=== PATIENT | male | born 1975 | race African-American/Black ===

== ENCOUNTER 2025-01-09 19:36 | Emergency (ER) | payer MEDICAID ==
[~2025-01-09] VITALS: Ht 188 cm; Wt 81.0 kg
[2025-01-09 19:40] VITALS: O2SAT 100
[2025-01-09] MEDS: MAGNESIUM HYDROXIDE 400MG/5ML 30ML UDC PO ONE (21:26)
[2025-01-09] MEDS: SODIUM CHLORIDE 0.9% 1,000 ML IV ONE (21:27)
[2025-01-09] MEDS: ONDANSETRON HCL 4MG/2ML INJ IV ONE (21:27)
[2025-01-09] MEDS: VISCOUS LIDOCAINE 2% 15 ML UDC MM ONE (21:27)
[2025-01-09] MEDS: PANTOPRAZOLE SODIUM 40 MG/VIAL IV SCH (21:27)
[2025-01-09 21:29] LABS: HEMATOCRIT. 46.6 % (42.0-52.0); HEMOGLOBIN. 14.7 g/dL (14.0-18.0); MEAN PLATELET VOLUME 7.9 fl (7.4-10.4); PLATELET 282 x1000/uL (130-400); RED BLOOD CELL COUNT 6.34 mill/uL (4.7-6.1); RED CELL DISTRIBUTION WIDTH 16.6 % (11.6-14.6)
[2025-01-09 21:32] LABS: CREATININE 0.9 mg/dL (0.6-1.3)
[2025-01-09 21:33] LABS: TROPONIN I HIGH SENSITIVITY < 4 ng/L (3.0-53); UREA NITROGEN BLOOD < 5 mg/dL (9-23)
[2025-01-09 21:34] LABS: ASPARTATE AMINOTRANSFERASE 68 IU/L (<34)
[2025-01-09 21:35] LABS: BILIRUBIN DIRECT 0.2 mg/dL (<=3.0); BILIRUBIN TOTAL 0.4 mg/dL (0.1-1.0); PROTEIN TOTAL 7.9 g/dL (6.0-8.3)
[2025-01-09 21:41] LABS: INR 0.9
[2025-01-09 21:58] LABS: EOSINOPHILS % MANUAL 1.0 % (0.0-5.0); LYMPHOCYTES % MANUAL 40.0 % (20.0-50.0); MONOCYTES % MANUAL 22.0 % (2.0-8.0); NEUTROPHILS % MANUAL 37.0 % (45.0-75.0); PLATELET ESTIMATE NORMAL
[2025-01-09 21:59] LABS: CLARITY URINE CLEAR (CLEAR); COLOR URINE YELLOW (YELLOW); GLUCOSE URINE NEGATIVE (NEGATIVE); KETONES URINE NEGATIVE (NEGATIVE); LEUKOCYTE ESTERASE URINE NEGATIVE (NEGATIVE); NITRITE URINE NEGATIVE (NEGATIVE); OCCULT BLOOD URINE NEGATIVE (NEGATIVE); PH URINE 5.5 (4.5-8.0); PROTEIN URINE NEGATIVE (NEGATIVE); SPECIFIC GRAVITY URINE 1.013 (1.005-1.030); UROBILINOGEN URINE 1.0 E.U./dL (0.2-1.0)
[2025-01-09 22:13] LABS: *AMPHETAMINES SCREEN URINE PRESUMPTIVE POSITIVE (NEGATIVE); *BARBITURATES SCREEN URINE NEGATIVE (NEGATIVE); *BENZODIAZEPINES SCREEN URINE NEGATIVE (NEGATIVE); *COCAINE SCREEN URINE NEGATIVE (NEGATIVE); CANNABINOID URINE SCREEN NEGATIVE (NEGATIVE); ECSTASY MDMA SCREEN URINE NEGATIVE (NEGATIVE); METHADONE URINE SCREEN NEGATIVE (NEGATIVE); OPIATES URINE SCREEN NEGATIVE (NEGATIVE); PHENCYCLIDINE URINE SCREEN NEGATIVE (NEGATIVE)
[2025-01-10 01:09] VITALS: BP 118/80; PULSE 90; RESP 23; TEMP 36.8; O2SAT 100
[2025-01-10] MEDS ORDERED: IOHEXOL-300 100 ML BOTTLE ONE (03:51)
== END 2025-01-10 01:22 | disposition left against medical advice (07) ==
LOC: ER 19:36 → EDBEDREQ 01-10 00:46 → EDBEDREQTM 01-10 00:46 → EDBEDREQDT 01-10 00:46 → ENRESERV 01-10 00:54 → CANBEDREQ 01-10 01:17 → ER 01-10 01:22
DX: R07.89 Other chest pain (principal); K92.0 Hematemesis; F10.20 Alcohol dependence, uncomplicated; Y90.8 Blood alcohol level of 240 mg/100 ml or more
CPT/HCPCS: 80076; 80305; 80048; 81003; 80320; 83880; 83690; 85025; 85610; 85730; 84484; 36415; 71045; 74177; 93005; 96365; 96375; 99285; J2405; J2470; J7030; Z7610 ×3; Q9967; G0480